=== PATIENT | female | born 1970 | race Caucasian/White ===

== ENCOUNTER 2019-08-18 19:54 | Emergency (ER) | payer BC ==
[~2019-08-18] VITALS: Ht 157.5 cm; Wt 53.1 kg
[2019-08-18 20:28] VITALS: BP 122/78
--- NOTE | 2019-08-18 22:56 | NUR ---
Dr. Perez is evaluating the patient in [place].
[2019-08-19 00:22] VITALS: BP 122/78
--- NOTE | 2019-08-19 00:23 | NUR ---
Patient discharged with v/s stable. Written and verbal after care instructions given and explained. Patient verbalized understanding. Ambulatory with steady gait. All questions addressed prior to discharge. Advised to follow up with PMD. PT EVALUATED AND DC'D BY CHANCE. NO NURSING INTERVENTION DONE.
== END 2019-08-19 00:23 | disposition home or self-care (01) ==
LOC: MED 19:54
DX: S92.512A Displaced fracture of proximal phalanx of left lesser toe(s), initial encounter for closed fracture (principal); W22.8XXA Striking against or struck by other objects, initial encounter; Y93.89 Activity, other specified; Y92.89 Other specified places as the place of occurrence of the external cause; Y99.8 Other external cause status
CPT/HCPCS: 73630; 99283